=== PATIENT | female | born 1970 | race Caucasian/White ===

== ENCOUNTER 2018-09-12 13:24 | Emergency (ER) | payer BC ==
[~2018-09-12] VITALS: Ht 165.1 cm; Wt 64.4 kg
[~2018-09-12 13:24] MED LIST: ANAPROX DS550 MG PO; ATIVAN2 MG PO; Effexor25 MG PO; MOTRIN800 MG PO; TAMIFLU75 MG PO; TRAMADOL HCL50 MG PO; ULTRAM50 MG PO; ZOFRAN ODT4 MG SL
[2018-09-12] MEDS ORDERED: NORCO 5-325 TA1 EACH PO (16:18)
== END 2018-09-12 16:21 | disposition home or self-care (01) ==
LOC: ED 13:24
DX: S92.355A Nondisplaced fracture of fifth metatarsal bone, left foot, initial encounter for closed fracture (principal); Z88.2 Allergy status to sulfonamides; Z79.899 Other long term (current) drug therapy; X50.1XXA Overexertion from prolonged static or awkward postures, initial encounter; Y93.01 Activity, walking, marching and hiking; Y92.89 Other specified places as the place of occurrence of the external cause; Y99.8 Other external cause status

== ENCOUNTER 2019-05-18 09:09 | Emergency (ER) | payer BC ==
[~2019-05-18] VITALS: Ht 162.5 cm; Wt 59.9 kg
[~2019-05-18 09:09] MED LIST changes: +NORCO 5-325 TA1 EACH PO
== END 2019-05-18 10:34 | disposition home or self-care (01) ==
LOC: ED 09:09
DX: M25.572 Pain in left ankle and joints of left foot (principal); Z79.899 Other long term (current) drug therapy; Z88.2 Allergy status to sulfonamides; X58.XXXA Exposure to other specified factors, initial encounter; Y93.89 Activity, other specified; Y92.89 Other specified places as the place of occurrence of the external cause; Y99.8 Other external cause status